=== PATIENT | male | born 1995 | race Caucasian/White ===

== ENCOUNTER 2021-11-07 03:04 | Emergency (ER) | payer SELFPAY ==
[~2021-11-07] VITALS: Ht 167.6 cm; Wt 86.2 kg
--- NOTE | 2021-11-07 03:28 | NUR ---
BIBS C/O PALPITATIONS SINCE 12AM WITH PAIN IN MIDDLE OF BACK. PATIENT ALERT AND ORIENTED X3. AMBULATORY WITH NON LABORE DBREATHING PT IN BED 09 ON MONITOR AND POX.
[2021-11-07] MEDS ORDERED: HYDROCODONE/APAP 5/325MG TABLET ONE (03:45)
--- NOTE | 2021-11-07 03:48 | NUR ---
URINE COLLECTED AND SENT TO LAB
[2021-11-07] MEDS ORDERED: HYDROCODONE/APAP 5/325MG TABLET PO ONE (04:00)
[2021-11-07 04:11] LABS: BILIRUBIN,URINE NEGATIVE (NEGATIVE); COLOR,URINE YELLOW (YELLOW); LEUKOCYTE ESTERASE ,URINE NEGATIVE (NEGATIVE); NITRITE, URINE NEGATIVE (NEGATIVE); PROTEIN,URINE NEGATIVE (NEGATIVE); UGLUCOSE NEGATIVE (NEGATIVE); UROBILINOGEN,URINE 0.2 EU/dL (0.2)
[2021-11-07] MEDS ORDERED: HYDR-4209 PO (05:34)
--- NOTE | 2021-11-07 05:48 | NUR ---
Patient discharged to home in stable condition. RX Written and verbal after care instructions given. Patient verbalizes understanding of instruction. PT ambulatory with a steady gait
[2021-11-07 05:50] VITALS: BP 135/88
== END 2021-11-07 05:50 | disposition home or self-care (01) ==
LOC: ER 03:08
DX: G89.29 Other chronic pain (principal); R00.2 Palpitations; M54.6 Pain in thoracic spine
CPT/HCPCS: 71045-TC

== ENCOUNTER 2022-03-26 00:27 | Emergency (ER) | payer SELFPAY ==
[~2022-03-26] VITALS: Ht 160 cm; Wt 90.7 kg
[~2022-03-26 00:27] MED LIST: HYDR-4209 PO
[2022-03-26 00:39] VITALS: BP 124/79
[2022-03-26] MEDS ORDERED: AMOX500T2 PO (00:41)
--- NOTE | 2022-03-26 00:44 | NUR ---
Patient discharged to home in stable condition. Written and verbal after care instructions given. Patient verbalizes understanding of instruction. Pt ambulatory with a steady gait
== END 2022-03-26 00:46 | disposition home or self-care (01) ==
LOC: ER 00:28
DX: H66.91 Otitis media, unspecified, right ear (principal)